=== PATIENT | male | born 1970 | race Caucasian/White ===

== ENCOUNTER 2016-08-23 13:44 | Day surgery (SDC) | payer OTHER ==
[~2016-08-23] VITALS: Ht 157.5 cm; Wt 103.4 kg
[~2016-08-23 13:44] MED LIST: ADULT LOW DOSE81 M1 PO; ALAWAY10 ML BOTH EYES; ALLERGY EYE5 ML BOTH EYES; ANAPROX DS550 MG PO; ASPIR 8181 M1 PO; ASPIR-LOW81 MG PO; BACTRIM,SEPT1 TABLET PO; BENZONATATE100 MG PO; CLARITIN10 M3 PO; CLARITIN10 MG PO; DELSYM30 MG/5 M1 PO; DEXILANT60 MG PO; FLUCONAZOLE100 MG PO; GERI-LANTA LIQ355 ML PO; IBUPROFEN600 MG PO; KETOCONAZOLE120 ML TP; LEVAQUIN750 MG PO; LEVOTHROID,S0.125 MG PO; LEVOTHYROXINE88 MCG PO; LOPERAMIDE2 M1 PO; LORATADINE10 M2 PO; LOW DOSE ASPIRI81 M1 PO; MAALOX ADVANCE355 ML PO; METOPROLOL SUCC25 MG PO; MUCINEX1200 MG PO; MUCINEX600 MG PO; MYCOSTATIN 100,60 ML PO; NAPROXEN SODIU220 M1 PO; NAPROXEN SODIU550 MG PO; NIZORAL120 ML TP; PATANOL OP100 DROP/5 BOTH EYES; PATANOL5 ML BOTH EYES; PHENTERMINE HCL15 MG PO; PRILOSEC20 MG PO; PRILOSEC40 MG PO; PROAIR HFA8.5 GM IH; ROBITUSSIN AC,T10 ML PO; SYNTHROID100 MCG PO; TIROSINT88 MCG PO; TOPROL XL25 MG PO; TUMS500 MG PO; TYLENOL EXTRA500 MG PO; TYLENOL325 M1 PO; VENTOLIN HFA18 GM IH; VITAMIN C500 M1 PO; VITAMIN D1000 INTUN PO; [UNRECOGNIZED DRUG - OTHER] DT
== END 2016-08-23 16:05 | disposition home or self-care (01) ==
LOC: CATH 13:44
PROC: 0JPT32Z Removal of Monitoring Device from Trunk Subcutaneous Tissue and Fascia, Percutaneous Approach (ICD-10-PCS; principal; 2016-08-23)
DX: R55 Syncope and collapse (principal); I42.1 Obstructive hypertrophic cardiomyopathy; E78.5 Hyperlipidemia, unspecified; K21.9 Gastro-esophageal reflux disease without esophagitis; G89.29 Other chronic pain; Q90.9 Down syndrome, unspecified; E66.9 Obesity, unspecified; Z68.41 Body mass index [BMI] 40.0-44.9, adult; E03.9 Hypothyroidism, unspecified; Z79.82 Long term (current) use of aspirin
CPT/HCPCS: J2250; J3010; S0020

== ENCOUNTER 2018-02-25 15:15 | Emergency (ER) | payer OTHER ==
[~2018-02-25] VITALS: Ht 177.8 cm; Wt 99.8 kg
[2018-02-25 16:28] LABS: BASOPHIL (%) 0.6 % (0-1); EOSINOPHIL (%) 1.4 % (0-5); EOSINOPHIL COUNT 0.1 K/uL (0-0.3); HEMATOCRIT 37.9 % (38.0-50.0); HEMOGLOBIN 13.3 G/DL (12.5-16.6); IMMATURE GRANULOCYTE (%) 0.6 % (0.0-0.7); LYMPHOCYTE (%) 22.4 % (15-42); LYMPHOCYTE COUNT 1.6 K/uL (1.0-2.8); MCH 34.5 PG (29.0-34.0); MCHC 35.1 G/DL (30.0-36.0); MCV 98.2 FL (86-99); MONOCYTE (%) 5.7 % (3-12); MONOCYTE COUNT 0.4 K/uL (0-0.8); NEUTROPHIL (%) 69.3 % (45-76); PLATELET COUNT 164 K/uL (156-360); RBC DIS.WIDTH-CV 13.5 % (11.8-14.6); RBC DIS.WIDTH-SD 48.9 % (39-53); RED BLOOD COUNT 3.86 M/uL (4.00-5.50); WHITE BLOOD COUNT 7.2 K/uL (4.1-10.2)
[2018-02-25 16:36] LABS: ALBUMIN 3.7 g/dL (3.2-4.8); CHLORIDE 108 mEq/L (99-109)
[2018-02-25 16:37] LABS: SODIUM 142 mEq/L (136-147)
[2018-02-25 16:39] LABS: GLUCOSE 99 mg/dL (70-99); TOTAL PROTEIN 7.2 g/dL (6.4-8.3)
[2018-02-25 16:41] LABS: TOTAL BILIRUBIN 0.3 mg/dL (0.0-1.0)
[2018-02-25 16:42] LABS: ALKALINE PHOSPHATASE 77 IU/L (3-129); CREATININE 0.8 mg/dL (0.6-1.3); GFR ESTIMATE (CALCULATED) > 59 mL/min/ (58.99-99999)
[2018-02-25 16:44] LABS: AST (GOT) 15 IU/L (2-34); UREA NITROGEN (BUN) 12 mg/dL (9-23)
[2018-02-25 16:45] LABS: ALT (GPT) 17 IU/L (3-49)
[2018-02-25 16:48] LABS: TROP-I INTERPRETATION NEGATIVE; TROPONIN-I 0.17 ng/mL (0.0-0.30)
[2018-02-25 19:58] LABS: TROP-I INTERPRETATION NEGATIVE; TROPONIN-I 0.19 ng/mL (0.0-0.30)
[2018-02-25 20:21] VITALS: BP 112/79
== END 2018-02-25 20:24 | disposition home or self-care (01) ==
LOC: EME → EDBD 15:15 → EME 20:24
PROVIDERS: Emergency Medicine
DX: R07.9 Chest pain, unspecified (principal); Q90.9 Down syndrome, unspecified; K21.9 Gastro-esophageal reflux disease without esophagitis; E03.9 Hypothyroidism, unspecified; I25.2 Old myocardial infarction; Z95.810 Presence of automatic (implantable) cardiac defibrillator
CPT/HCPCS: 71045; 80053; 84484; 85025; 93005; 99281; 99284